=== PATIENT | female | born 1980 | race African-American/Black ===

== ENCOUNTER 2022-04-20 00:03 | Emergency (ER) | payer OTHER, SELFPAY ==
[2022-04-20] VITALS (10 sets, daily range): BP systolic 140–173; BP diastolic 91–113; PULSE 71–92; RESP 10–16; O2SAT 94–100
--- NOTE | 2022-04-20 00:14 | ECG_ITS ---
Measurements Intervals [place] Rate: 74 P: 65 FL: 169 QRS: 45 QRSD: 82 T: 53 QT: 379 QTc: 423 Interpretive Statements SINUS RHYTHM WITH SINUS ARRHYTHMIA POSSIBLE LEFT ATRIAL ENLARGEMENT BASELINE ARTIFACT- II, V1-V2, V4-V6 BORDERLINE ECG Electronically Signed On 04-20-2022 9:39:17 CDT by Trevor Arriola D.O.
[2022-04-20] MEDS: ONDANSETRON INJ 4 MG/2 ML VIAL IV PUSH (00:26)
[2022-04-20] MEDS: SODIUM CHLORIDE 0.9% IV 1,000 ML 999 ML IV CONT (00:27)
[2022-04-20 00:35] LABS: Basophils Percent Auto 0.3 % (0.2-1.2); Eosinophils Absolute Auto 0.2 K/mm3 (0-0.3); Eosinophils Percent Auto 2.5 % (0-4.4); Hematocrit 34.9 % (37.0-47.0); Hemoglobin 10.7 g/dL (12.0-15.0); Immature Granulocyte Absolute 0.01 K/mm3 (0.00-0.031); Immature Granulocyte Percent A 0.2 % (0-0.5); Lymphocytes Absolute Auto 2.51 K/mm3 (0.9-3.2); Lymphocytes Percent Auto 42.2 % (18.3-44.2); Mean Corpuscular HGB Conc 30.7 g/dl (32-36); Mean Corpuscular Hemoglobin 22.8 pg (26-34); Mean Corpuscular Volume 74.3 fl (80-100); Mean Platelet Volume 10.5 fl (7.4-10.4); Monocytes Absolute Auto 0.4 K/mm3 (0.1-0.6); Monocytes Percent Auto 5.9 % (2.6-8.5); Neutrophils Absolute Auto 2.9 K/mm3 (1.3-6.7); Neutrophils Percent Auto 48.9 % (45.5-73.1); Platelet Count Result 243 k/mm3 (150-375); Red Cell Distribution Width 20.1 % (11.5-14.5)
--- NOTE | 2022-04-20 00:43 | ED.GENADULT ---
HPI - General Adult General Chief complaint: Altered Mental Status Stated complaint: altered mental status Time Seen by Provider: 04/20/22 00:10 History of Present Illness HPI narrative: Patient is a 41-year-old female who presents the emergency department with chief complaint of altered mental status. The family reports that she and her significant other shared 2 bottles of wine this evening and then one of the family members brought in some moonshine from [place] the patient took several shots of the moonshine walked outside to the porch and sat down on the couch and was found unresponsive by the family members. EMS was called and the patient was transported to the emergency department upon arrival to the emergency department the patient does not remember traveling to the emergency department reports that she feels rather intoxicated and would like to go home Related Data Allergies Allergy/AdvReac Type Severity Reaction Status Date / Time No Known Allergies Allergy Verified 04/20/22 00:19 Review of Systems Review of Systems: A 10 system review of systems was completed on the patient and is negative except for what is stated in the HPI. Nursing and ancillary documentation was reviewed. Exam Narrative: GENERAL: Well-appearing, well-nourished, and in no acute distress. HEAD: Normocephalic, atraumatic. EYES: PERRLA and EOMI. ENT: Nares clear, no rhinorrhea or epistaxis. Mucous membranes moist. NECK: Supple. CHEST: Clear to auscultation. No respiratory distress. HEART: Regular rate and rhythm. No murmur heard. Normal peripheral pulses. ABDOMEN: Soft, nontender, nondistended, normal active bowel sounds. EXTREMITIES: Normal range of motion. No edema. SKIN: Warm, dry, no rash. NEURO: No focal deficits. Alert and oriented x3. PSYCH: Normal mood and affect. Course Vital Signs Vital signs: Vital Signs Pulse Rate 92 04/20/22 00:07 Respiratory Rate 15 04/20/22 00:07 Blood Pressure 173/113 H 04/20/22 00:07 Pulse Oximetry 98 04/20/22 00:07 Oxygen Delivery Room Air 04/20/22 00:07 Pulse Rate 77 04/20/22 00:46 Respiratory Rate 14 04/20/22 00:46 Blood Pressure 146/100 H 04/20/22 01:01 Pulse Oximetry 100 04/20/22 01:01 Oxygen Delivery Room Air 04/20/22 00:07 Medical Decision Making Vital Signs Vital Signs: Vital Signs Pulse Rate 92 04/20/22 00:07 Respiratory Rate 15 04/20/22 00:07 Blood Pressure 173/113 H 04/20/22 00:07 Pulse Oximetry 98 04/20/22 00:07 Oxygen Delivery Room Air 04/20/22 00:07 Pulse Rate 77 04/20/22 00:46 Respiratory Rate 14 04/20/22 00:46 Blood Pressure 146/100 H 04/20/22 01:01 Pulse Oximetry 100 04/20/22 01:01 Oxygen Delivery Room Air 04/20/22 00:07 Lab Data Result diagrams: 04/20/22 00:25 04/20/22 00:25 Labs: Lab Results 04/20/22 04/20/22 04/20/22 Range/Units 00:25 00:25 00:25 WBC 6.0 (4.5-10.0) K/mm3 RBC 4.70 (4.2-5.4) M/mm3 Hgb 10.7 L (12.0-15.0) g/dL Hct 34.9 L (37.0-47.0) % MCV 74.3 L (80-100) fl MCH 22.8 L (26-34) pg MCHC 30.7 L (32-36) g/dl RDW 20.1 H (11.5-14.5) % Plt Count 243 (150-375) k/mm3 MPV 10.5 H (7.4-10.4) fl Immature Gran % (Auto) 0.2 (0-0.5) % Neut % (Auto) 48.9 (45.5-73.1) % Lymph % (Auto) 42.2 (18.3-44.2) % [place] % (Auto) 5.9 (2.6-8.5) % Eos % (Auto) 2.5 (0-4.4) % Baso % (Auto) 0.3 (0.2-1.2) % Lymph # (Auto) 2.51 (0.9-3.2) K/mm3 [place] # (Auto) 0.4 (0.1-0.6) K/mm3 Eos # (Auto) 0.2 (0-0.3) K/mm3 Baso # (Auto) 0.0 (0.0-0.1) K/mm3 Abs Immat Gran (auto) 0.01 (0.00-0.031) K/mm3 Absolute Neuts (auto) 2.9 (1.3-6.7) K/mm3 Absolute Nucleated RBC 0.0 (0.0-0.012) K/mm3 Nucleated RBC % 0.0 (0.0-0.2) % Platelet Estimate Adequate (Adequate) Hypochromasia 1+ (NORMAL) Poikilocytosis 1+ (NORMAL) Sodium 143 (137-145) mmol/L Potassium
[2022-04-20 00:49] LABS: Alanine Aminotransferase 7 U/L (6-35); Albumin Level 4.5 g/dL (3.5-5.1); Alkaline Phosphatase 88 U/L (38-126); Anion Gap 13 mmol/L (8-16); Aspartate Amino Transferase 29 U/L (14-36); Bilirubin,Total 0.3 mg/dL (0.2-1.3); Blood Urea Nitrogen 10 mg/dL (7-17); Calcium 9.5 mg/dL (8.4-10.2); Carbon Dioxide 19 mmol/L (22-30); Chloride 111 mmol/L (98-107); Estimated CRCL calculation 80 ml/min; Estimated Glomerular Filt Rate > 60; Ethanol 182 mg/dL (<10); Glucose 87 mg/dL (65-110); Lactic Acid Reflex 2.9 mmol/L (0.7-2.0); Magnesium 1.9 mg/dL (1.6-2.3); Potassium 3.5 mmol/L (3.4-5.0); Sodium 143 mmol/L (137-145)
[2022-04-20 00:52] LABS: Appearance Urine Clear (Clear); Bilirubin Urine Negative (Negative); Blood Urine 3+ (Negative); Color Urine Yellow (Yellow); Glucose Urine UA Negative (Negative); Ketones Urine Negative (Negative); Leukocyte Esterase Ur Negative LEU/UL (Negative); Nitrate Urine Negative (Negative); Protein Urine Negative (Negative); Urobilinogen Urine 0.2 mg/dL (<2.0)
[2022-04-20 01:02] LABS: Platelet Estimate Adequate (Adequate)
[2022-04-20 01:03] LABS: Poikilocytosis 1+ (NORMAL)
[2022-04-20 01:04] LABS: Hypochromasia 1+ (NORMAL)
[2022-04-20 01:10] LABS: Amphetamine Screen Urine Negative (Negative); Barbiturate Screen Urine Negative (Negative); Benzodiazepines Screen Urine Negative (Negative); Cannabinoid Screen Urine Negative (Negative); Cocaine Screen Urine Negative (Negative); Methadone Screen Urine Negative (Negative); Opiate Screen Urine Negative (Negative); Phencyclidine Screen Urine Negative (Negative)
[2022-04-20 01:13] LABS: Pregnancy On Board Control Positive; Urine Pregnancy Test Negative
[2022-04-20 02:17] LABS: Bacteria Urine Trace /hpf; Mucus Urine Rare /lpf; RBC Urine 21-50 /hpf (0-2); Squamous Epithelial Cell Urine Occasional /hpf (Few); WBC Urine 0-3 /hpf
[2022-04-20 02:18] LABS: Add Urine Microscopic? YES
[2022-04-20 03:32] LABS: Reflex Lactic Acid Yes or No Add Lactic
== END 2022-04-20 01:33 | disposition home or self-care (01) ==
PROVIDERS: Emergency Provider Emergency Medicine; PCP Pediatrics
DX: F10.129 Alcohol abuse with intoxication, unspecified (principal); Y90.6 Blood alcohol level of 120-199 mg/100 ml; R94.31 Abnormal electrocardiogram [ECG] [EKG]
CPT/HCPCS: 36415; 80053; 80307; 81001; 81025; 83605; 83735; 85025; 93005; 96361; 96374; 99284; J2405; J7030